=== PATIENT | female | born 1970 | race Caucasian/White ===

== ENCOUNTER 2018-02-10 06:57 | Day surgery (SDC) | payer OTHER ==
[~2018-02-10] VITALS: Ht 149.9 cm; Wt 57.2 kg
[2018-02-10 08:11] LABS: BASOPHILS # (AUTO) 0.1 K/uL (0.00-0.22); BASOPHILS % (AUTO) 0.8 % (0.0-2.0); EOSINOPHILS % (AUTO) 7.9 % (0.0-4.0); HEMATOCRIT 40.6 % (36-48); HEMOGLOBIN 13.8 g/dL (12.0-16.0); LYMPHOCYTES # (AUTO) 2.2 K/uL (2.5-16.5); LYMPHOCYTES % (AUTO) 18.4 % (20.5-51.1); MEAN CORPUSCULAR HEMOGLOBIN 31 pg (27-31); MEAN CORPUSCULAR HGB CONC 34 g/dL (33-37); MEAN CORPUSCULAR VOLUME 90.5 fL (80-94); MONOCYTES # (AUTO) 0.8 K/uL (0.8-1.0); MONOCYTES % (AUTO) 6.5 % (1.7-9.3); NEUTROPHILS # (AUTO) 8.1 K/uL (1.8-7.7); NEUTROPHILS % (AUTO) 66.4 % (42.2-75.2); PLATELET COUNT (AUTO) 450 K/uL (140-450); RED BLOOD CELL COUNT(AUTO) 4.49 MIL/uL (4.20-5.40); RED CELL DISTRIBUTION WIDTH 13.3 % (11.6-13.7); WHITE BLOOD COUNT (AUTO) 12.2 K/uL (4.8-10.8)
[2018-02-10] MEDS ORDERED: LIDOCAINE 2% 1000 MG/50 ML VIAL INJ ONE (08:21)
[2018-02-10 08:30] LABS: PROTHROMBIN TIME 10.3 secs (10.8-13.4)
== END 2018-02-10 10:40 | disposition home or self-care (01) ==
LOC: MDS 06:57 → MMU 07:00 → MDS 10:40
PROVIDERS: ATTEND Internal Medicine Gastroenterology
DX: K73.8 Other chronic hepatitis, not elsewhere classified (principal); K75.89 Other specified inflammatory liver diseases; K74.0 Hepatic fibrosis; I10 Essential (primary) hypertension; E66.3 Overweight; Z68.25 Body mass index [BMI] 25.0-25.9, adult; Z98.890 Other specified postprocedural states; Z95.0 Presence of cardiac pacemaker; Z90.49 Acquired absence of other specified parts of digestive tract; Z88.0 Allergy status to penicillin; Z79.82 Long term (current) use of aspirin; Z79.899 Other long term (current) drug therapy
CPT/HCPCS: 36415; 47000; 76942; 85025; 85610; 85730; 88307; 88313; J2001

== ENCOUNTER 2023-11-25 08:45 | Day surgery (SDC) | payer OTHER ==
[~2023-11-25] VITALS: Ht 147.3 cm; Wt 54.4 kg
[2023-11-25] MEDS ORDERED: fentaNYL citrate 0.05 MG/ML VIAL ONE (10:04)
[2023-11-25] MEDS: fentaNYL citrate 0.05 MG/ML VIAL IVP ONE (10:33)
[2023-11-25] MEDS: LIDOCAINE 2% 100 MG/5 ML UJET TP ONE (10:41)
== END 2023-11-25 11:45 | disposition home or self-care (01) ==
LOC: MDS 08:45 → MMU 08:46 → MDS 11:45
PROVIDERS: ATTEND Internal Medicine Gastroenterology
DX: Z12.11 Encounter for screening for malignant neoplasm of colon (principal); K63.5 Polyp of colon; I10 Essential (primary) hypertension; E11.9 Type 2 diabetes mellitus without complications; Z79.82 Long term (current) use of aspirin; Z88.0 Allergy status to penicillin; Z79.899 Other long term (current) drug therapy; Z98.890 Other specified postprocedural states
CPT/HCPCS: 45385; 82948; J3010